=== PATIENT | female | born 1975 | race Caucasian/White ===

== ENCOUNTER 2018-07-07 18:23 | Emergency (ER) | payer OTHER ==
[~2018-07-07] VITALS: Ht 160 cm; Wt 54.4 kg
[2018-07-07 18:47] VITALS: BP_SYST 123
[2018-07-07] MEDS ORDERED: DIPHENHYDRAMINE INJ 50 MG/ML VIAL IVP ONE (21:15)
[2018-07-07] MEDS ORDERED: NACL 0.9% 1,000 ML IV ONE (21:15)
[2018-07-07] MEDS ORDERED: PROCHLORPERAZINE EDISYLATE 10 MG/2 ML VIAL IVP ONE (21:15)
[2018-07-07 23:15] VITALS: BP_SYST 123
== END 2018-07-07 23:15 | disposition home or self-care (01) ==
LOC: SED 18:23
DX: G44.209 Tension-type headache, unspecified, not intractable (principal)
CPT/HCPCS: 70450; 81025; 96361; 96374; 96375; 99284; J0780; J1200; J7030